=== PATIENT | female | born 1950 | race Caucasian/White ===

== ENCOUNTER 2025-03-03 12:06 | Inpatient (IN) | payer MEDICARE, OTHER ==
[~2025-03-03] VITALS: Ht 162.5 cm; Wt 44.5 kg
[2025-03-03] MEDS ORDERED: ACETAMINOPHEN 325 MG TAB PO PRN (14:55)
[2025-03-03] MEDS ORDERED: MG-AL HYDROXIDE/SIMETICONE 30 ML UDC PO PRN (14:55)
[2025-03-03] MEDS ORDERED: Menthol/Zinc Oxide 4 GM THIN T PRN (15:20)
[2025-03-03] MEDS ORDERED: LORazepam 1 MG TAB PO PRN (15:45)
[2025-03-03] MEDS ORDERED: hydrOXYzine hydrochloride 50 MG/ML VIAL IM PRN (15:45)
[2025-03-03] MEDS ORDERED: Water, Sterile 10 ML VIAL IM PRN (15:45)
[2025-03-03] MEDS ORDERED: ATORVASTATIN CA10 M1 PO (15:56)
[2025-03-03] MEDS ORDERED: CARVEDILOL25 MG PO (15:57)
[2025-03-03] MEDS ORDERED: ENTRESTO 97 MG1 EACH PO (15:59)
[2025-03-03] MEDS ORDERED: FIBER LAX625 MG PO (16:00)
[2025-03-03] MEDS ORDERED: GUAIFENESIN DM PO (16:03)
[2025-03-03] MEDS ORDERED: ALDACTONE25 M1 PO (16:04)
[2025-03-03] MEDS ORDERED: VITAMIN D3125 MC1 PO (16:07)
[2025-03-03 16:20] VITALS: BP 140/58
[2025-03-03] MEDS ORDERED: SACUBITRIL/VALSARTAN 97 MG-103 MG TABLET PO SCH (21:00)
[2025-03-03 21:10] VITALS: BP 137/65
[2025-03-04 06:03] LABS: BASO # 0.0 10*3/uL (0.0-0.1); BASO % 0.5 % (0.0-1.0); BUN 19 mg/dl (9-23); EOS # 0.1 10*3/uL (0.0-0.4); EOS % 1.2 % (1.0-4.0); LDL CHOLESTEROL 98 mg/dL (9-159); MEAN CELL VOLUME 87.9 fl (81.0-99.0); MEAN CORPUSCULAR HGB 29.1 pg (27.0-31.0); MEAN PLATELET VOLUME 9.7 fl (9.6-12.3); MONO # 0.6 10*3/uL (0.1-1.0); MONO % 9.4 % (3.0-9.0); NEUT # 4.0 10*3/uL (2.3-7.9); NEUT % 66.8 % (47.0-73.0); NUCLEATED RED BLOOD CELL 0.0 % (0.0-0.0); NUCLEATED RED BLOOD CELL 0.0 10*3/uL (0.0-0.0); PLATELET COUNT AUTOMATED 184 10*3/uL (130-400); RED CELL DISTRI WIDTH 12.2 % (0-14.5); SGPT/ALT 10 U/L (5-49)
[2025-03-04 06:04] LABS: CARBAMAZEPINE (TEGRETOL) TOTAL < 0.4 ug/ml (4-12)
[2025-03-04 07:56] LABS: VITAMIN D, 25-HYDROXY 94.4 ng/mL (30-100)
[2025-03-04 08:00] VITALS: BP 135/54
[2025-03-04] MEDS ORDERED: Cholecalciferol 5,000 IU CAP (125 MCG) PO SCH (09:00)
[2025-03-04] MEDS ORDERED: ATORVASTATIN CALCIUM 10 MG TAB PO SCH (09:00)
[2025-03-04] MEDS ORDERED: SPIRONOLACTONE 25 MG TAB PO SCH (09:00)
[2025-03-04 14:41] VITALS: BP 169/58
[2025-03-04 20:00] VITALS: BP 102/38
[2025-03-05 08:36] VITALS: BP 115/57
[2025-03-05] MEDS ORDERED: SACUBITRIL/VALSARTAN 97 MG-103 MG TABLET PO SCH (09:00)
[2025-03-05 14:12] VITALS: BP 115/57
[2025-03-05] MEDS ORDERED: DIVALPROEX SODIUM 125 MG CAP PO SCH (18:00)
[2025-03-05 20:00] VITALS: BP 103/54
[2025-03-06] MEDS ORDERED: Cholecalciferol 2,000 UNIT TABLET (50 MCG) PO SCH (09:00)
[2025-03-06 09:25] VITALS: BP 108/48
[2025-03-06] MEDS ORDERED: DIVALPROEX SODIUM 125 MG CAP PO SCH (13:00)
[2025-03-06 14:08] VITALS: BP 108/48
[2025-03-06 20:00] VITALS: BP 111/67
[2025-03-07 09:43] VITALS: BP 115/59
[2025-03-07 14:09] VITALS: BP 115/59
[2025-03-07 20:00] VITALS: BP 126/58
[2025-03-08 08:00] VITALS: BP 109/59
[2025-03-08] MEDS ORDERED: MEMANTINE HCL10 MG PO (18:10)
[2025-03-08] MEDS ORDERED: RIVASTIGMINE TAR6 M1 PO (18:10)
[2025-03-08] MEDS ORDERED: DIVALPROEX SOD125 M1 PO (18:10)
[2025-03-08 18:24] LABS: BILIRUBIN Negative (Negative); BLOOD Trace-Lysed (Negative); CLARITY Turbid (Clear); COLOR Yellow (Yellow); KETONE Trace (Negative); LEUKO ESTERASE 3+ (Negative); NITRITE Positive (Negative); PH 6.0 (4.5-8.0); SPECIFIC GRAVITY 1.025 (1.001-1.030); UROBILINOGEN 1.0 E.U./dl (0.0-1.0)
[2025-03-08 18:50] LABS: WBC TNTC wbc/hpf (0-5)
[2025-03-08 18:51] LABS: BACTERIA 4+; MUCOUS TRACE
[2025-03-08 20:00] VITALS: BP 122/59
[2025-03-08] MEDS ORDERED: CEFDINIR 300 MG CAP PO SCH (21:00)
[2025-03-09 07:08] LABS: BASO # 0.0 10*3/uL (0.0-0.1); BASO % 0.3 % (0.0-1.0); EOS # 0.1 10*3/uL (0.0-0.4); EOS % 1.7 % (1.0-4.0); MEAN CELL VOLUME 88.7 fl (81.0-99.0); MEAN CORPUSCULAR HGB 29.2 pg (27.0-31.0); MEAN PLATELET VOLUME 9.7 fl (9.6-12.3); MONO # 0.6 10*3/uL (0.1-1.0); MONO % 9.3 % (3.0-9.0); NEUT # 3.9 10*3/uL (2.3-7.9); NEUT % 64.5 % (47.0-73.0); NUCLEATED RED BLOOD CELL 0.0 % (0.0-0.0); NUCLEATED RED BLOOD CELL 0.0 10*3/uL (0.0-0.0); PLATELET COUNT AUTOMATED 174 10*3/uL (130-400); RED CELL DISTRI WIDTH 12.4 % (0-14.5)
[2025-03-09 07:30] LABS: BUN 22 mg/dl (9-23)
[2025-03-09 07:31] LABS: SGPT/ALT < 7 U/L (5-49)
[2025-03-09 08:00] VITALS: BP 143/77
[2025-03-09] MEDS ORDERED: CEFDINIR300 MG PO (09:06)
== END 2025-03-09 16:07 | DRG 57 ==
LOC: 3N 12:06
PROVIDERS: Counselor Professional; ADMIT Psychiatry & Neurology Psychiatry; ATTEND Psychiatry & Neurology Psychiatry
PROC: GZHZZZZ Group Psychotherapy (ICD-10-PCS; principal; 2025-03-04)
PROC: GZ56ZZZ Individual Psychotherapy, Supportive (ICD-10-PCS; 2025-03-04)
DX: G30.9 Alzheimer's disease, unspecified (principal); F02.84 Dementia in other diseases classified elsewhere, unspecified severity, with anxiety; I11.0 Hypertensive heart disease with heart failure; F02.811 Dementia in other diseases classified elsewhere, unspecified severity, with agitation; I50.9 Heart failure, unspecified; R00.1 Bradycardia, unspecified; F63.81 Intermittent explosive disorder; E78.5 Hyperlipidemia, unspecified; Z87.891 Personal history of nicotine dependence; Z79.899 Other long term (current) drug therapy; Z79.01 Long term (current) use of anticoagulants; Z79.2 Long term (current) use of antibiotics